=== PATIENT | female | born 1970 | race Caucasian/White ===

== ENCOUNTER → 2021-04-10 | Outpatient (CLI) | payer OTHER ==
[~2021-04-10] MED LIST: ASPIRIN EC81 MG PO; BACTROBAN CREAM15 GM TOP; BENADRYL 50MG C50 MG PO; CATAPRES 0.1MG0.1 MG PO; GLUCOPHAGE1000 MG PO; LASIX20 MG PO; LISINOPRIL40 MG PO; MEDROL DOSEPAK 24 MG PO; NORVASC 5 MG TAB5 MG PO; PROTONIX20 MG PO; PROVENTIL HFA 61 INH INH; SINGULAIR10 MG PO
[2021-04-10 13:42] LABS: HEMOGLOBIN 10.4 gm/dl (12.3-15.3); RED BLOOD COUNT 4.55 M/UL (4.00-5.10); WHITE BLOOD COUNT 11.1 K/UL (4.5-11.0)
== END ==
LOC: LAB 13:17
PROVIDERS: Internal Medicine
DX: D72.829 Elevated white blood cell count, unspecified (principal)
CPT/HCPCS: 36415; 85025

== ENCOUNTER → 2021-04-27 | Day surgery (SDC) | payer OTHER ==
[~2021-04-27] MED LIST changes: +AMITRIPTYLINE H25 MG PO; +ESCITALOPRAM OX10 MG PO; +GABAPENTIN300 MG PO; +HUMALOG100 UNIT/1 SQ; +LEVEMIR100 UNIT/1 SQ; +LEVOTHYROXINE50 MC1 PO; +METOPROLOL SUCC25 MG PO; +VIT B 12 PO; +ZYRTEC10 M3 PO
== END | disposition home or self-care (01) ==
LOC: OR 05:57
DX: Z12.11 Encounter for screening for malignant neoplasm of colon (principal); I10 Essential (primary) hypertension; E11.9 Type 2 diabetes mellitus without complications; E78.5 Hyperlipidemia, unspecified; E78.00 Pure hypercholesterolemia, unspecified; K21.9 Gastro-esophageal reflux disease without esophagitis; G43.909 Migraine, unspecified, not intractable, without status migrainosus; F41.9 Anxiety disorder, unspecified; F32.A Depression, unspecified; G47.30 Sleep apnea, unspecified; J30.9 Allergic rhinitis, unspecified; Z79.899 Other long term (current) drug therapy; Z79.82 Long term (current) use of aspirin; Z79.84 Long term (current) use of oral hypoglycemic drugs; Z88.0 Allergy status to penicillin; Z88.1 Allergy status to other antibiotic agents; Z20.822 Contact with and (suspected) exposure to COVID-19; Z98.51 Tubal ligation status; Z77.22 Contact with and (suspected) exposure to environmental tobacco smoke (acute) (chronic)
CPT/HCPCS: 82962; J2704; J7030

== ENCOUNTER → 2021-05-03 | Outpatient (CLI) | payer OTHER | LOC: KOH-I 04-30 09:00 | DX: R16.0 Hepatomegaly, not elsewhere classified (principal); K92.1 Melena; D72.829 Elevated white blood cell count, unspecified; K76.89 Other specified diseases of liver; N28.89 Other specified disorders of kidney and ureter | CPT/HCPCS: 76700 ==

== ENCOUNTER → 2021-07-02 | Outpatient (CLI) | payer OTHER ==
[~2021-07-02] MED LIST changes: +ASCORBIC ACID500 MG PO; +COLACE100 MG PO; +FERROUS SULFAT325 MG PO; +HUMALOG100 UNIT/3 SQ; +LEVOTHYROXINE75 MC1 PO; +LOPRESSOR 25 MG25 MG PO; +METFORMIN HCL500 MG PO; +OMEGA 3 1,0001 EACH PO; +PERCOCET 5-3251 EACH PO; +PROTONIX40 MG PO
[2021-07-02 10:16] LABS: HEMOGLOBIN 11.2 gm/dl (12.3-15.3); RED BLOOD COUNT 4.34 M/UL (4.00-5.10); WHITE BLOOD COUNT 7.3 K/UL (4.5-11.0)
[2021-07-02 10:37] LABS: BUN/CREATININE RATIO 22 (0-10)
== END ==
LOC: OPSV2 08:55
PROVIDERS: Anesthesiology
DX: Z01.818 Encounter for other preprocedural examination (principal); R94.31 Abnormal electrocardiogram [ECG] [EKG]
CPT/HCPCS: 80048; 85025; 93005

== ENCOUNTER → 2021-07-05 | Day surgery (SDC) | payer OTHER | END | disposition home or self-care (01) | LOC: OR 07:23 | DX: C21.0 Malignant neoplasm of anus, unspecified (principal); K64.8 Other hemorrhoids; K64.4 Residual hemorrhoidal skin tags; I10 Essential (primary) hypertension; E78.5 Hyperlipidemia, unspecified; K21.9 Gastro-esophageal reflux disease without esophagitis; E11.9 Type 2 diabetes mellitus without complications; F32.A Depression, unspecified; F41.9 Anxiety disorder, unspecified; Z88.0 Allergy status to penicillin; Z88.1 Allergy status to other antibiotic agents; Z79.82 Long term (current) use of aspirin; Z79.4 Long term (current) use of insulin; Z79.899 Other long term (current) drug therapy; Z20.822 Contact with and (suspected) exposure to COVID-19 | CPT/HCPCS: 82962; J1100; J1885; J2001; J2250; J2405; J2704; J3010; J7120 ==

== ENCOUNTER → 2021-07-27 | Outpatient (CLI) | payer OTHER | LOC: MRI 09:59 | DX: C44.520 Squamous cell carcinoma of anal skin (principal); D72.829 Elevated white blood cell count, unspecified; R16.0 Hepatomegaly, not elsewhere classified; K92.1 Melena | CPT/HCPCS: 72197; A9577 ==

== ENCOUNTER 2021-08-08 07:25 | Inpatient (IN) | payer OTHER ==
[~2021-08-08] VITALS: Ht 162.6 cm; Wt 64.0 kg
[~2021-08-08 07:25] MED LIST changes: -ZYRTEC10 M3 PO; +ZYRTEC10 MG PO
[2021-08-08 07:59] LABS: HEMOGLOBIN 12.6 gm/dl (12.3-15.3); RED BLOOD COUNT 4.71 M/UL (4.00-5.10); WHITE BLOOD COUNT 9.1 K/UL (4.5-11.0)
[2021-08-08 08:39] LABS: BUN/CREATININE RATIO 20 (0-10)
[2021-08-08] MEDS ORDERED: STOOL SOFTENER100 M1 PO (12:14)
[2021-08-08] MEDS ORDERED: JARDIANCE25 MG PO (12:17)
[2021-08-08] MEDS ORDERED: VITAMIN D 40400 UNIT PO (12:17)
[2021-08-08] MEDS ORDERED: HYDROCODON-ACE1 EAC2 PO (12:17)
[2021-08-08] MEDS ORDERED: ZINC50 M1 PO (12:18)
[2021-08-09 04:00] LABS: HEMOGLOBIN 12.6 gm/dl (12.3-15.3); RED BLOOD COUNT 4.71 M/UL (4.00-5.10); WHITE BLOOD COUNT 10.4 K/UL (4.5-11.0)
[2021-08-09 04:21] LABS: BUN/CREATININE RATIO 29 (0-10)
[2021-08-10 02:50] LABS: HEMOGLOBIN 12.8 gm/dl (12.3-15.3); RED BLOOD COUNT 4.77 M/UL (4.00-5.10); WHITE BLOOD COUNT 11.3 K/UL (4.5-11.0)
[2021-08-10 03:02] LABS: BUN/CREATININE RATIO 33 (0-10)
--- NOTE | 2021-08-10 18:54 | NUR ---
DAUGHTER APPROACHED ME ABOUT GETTING A SHOWER CHAIR TO GET HER MOM OUT OF THE BED TO TAKE A SHOWER, I EXPLAINED THAT HER MOTHER WAS NOT ABLE TO CONTROL HER RIGHT SIDE AND IT WAS NOT A SAFE TRANSFER. I ALSO EXOPLAINED THAT SHE HAD A HEART MONITOR ON AND THAT A DOCTOR WOULD HAVE TO APPROVE THE MONITOR BEING REMOVED. THE FAMILY BECAME UPSET WHEN I HAD TO REMIND THEM THE VISITING POLICY WAS TO HAVE ONE VISITOR AT A TIME WITH COVID RESTRICTIONS BEING IN PLACE THERE WAS 7 PERSONS IN THE ROOM AT THIS TIME. SOLE STAPLER WELT WAS NOTIFIED. FAMILY REMAIN IN THE ROOM WITH PT SITTING AT THE SIDE OF THE BED WITH INTENTIONS OF PLACING THEIR MOTHER IN THE SHOWER. THE PATIENT AND ARE BOTH AWARE OF THE RISK FOR FALLING.
[2021-08-11 03:09] LABS: HEMOGLOBIN 12.8 gm/dl (12.3-15.3); RED BLOOD COUNT 4.78 M/UL (4.00-5.10); WHITE BLOOD COUNT 10.7 K/UL (4.5-11.0)
[2021-08-11 03:34] LABS: BUN/CREATININE RATIO 42 (0-10)
[2021-08-14] MEDS ORDERED: ATORVASTATIN CA40 MG PO (12:13)
[2021-08-14] MEDS ORDERED: CLOPIDOGREL75 MG PO (12:13)
[2021-08-14] MEDS ORDERED: LEVEMIR100 UNIT/1 SQ (12:18)
== END 2021-08-14 17:34 | disposition home health service (06) | DRG 65 ==
LOC: ER1 07:25 → M/S 10:03 → CDU 10:03 → M/S 12:40
PROVIDERS: Emergency Medicine; Physician Assistant Medical; ADMIT Internal Medicine
PROC: B24BZZZ Ultrasonography of Heart with Aorta (ICD-10-PCS; principal; 2021-08-09)
DX: I63.09 Cerebral infarction due to thrombosis of other precerebral artery (principal); G81.91 Hemiplegia, unspecified affecting right dominant side; C21.0 Malignant neoplasm of anus, unspecified; Z20.822 Contact with and (suspected) exposure to COVID-19; E11.9 Type 2 diabetes mellitus without complications; K21.9 Gastro-esophageal reflux disease without esophagitis; R47.81 Slurred speech; R29.810 Facial weakness; E78.5 Hyperlipidemia, unspecified; I08.1 Rheumatic disorders of both mitral and tricuspid valves; R53.81 Other malaise; R29.702 NIHSS score 2; E03.9 Hypothyroidism, unspecified; D50.9 Iron deficiency anemia, unspecified; Z90.49 Acquired absence of other specified parts of digestive tract; Z98.51 Tubal ligation status; Z98.891 History of uterine scar from previous surgery; Z88.1 Allergy status to other antibiotic agents; Z88.5 Allergy status to narcotic agent; Z88.0 Allergy status to penicillin; Z88.2 Allergy status to sulfonamides; Z82.49 Family history of ischemic heart disease and other diseases of the circulatory system; Z83.3 Family history of diabetes mellitus; Z80.9 Family history of malignant neoplasm, unspecified; Z79.4 Long term (current) use of insulin; Z86.73 Personal history of transient ischemic attack (TIA), and cerebral infarction without residual deficits; Z88.8 Allergy status to other drugs, medicaments and biological substances; Z79.82 Long term (current) use of aspirin
CPT/HCPCS: ECHO; 36415; 70450; 70496; 70498; 70551; 71045; 80048; 80053; 80061; 81001; 82550; 82553; 82962; 83036; 83735; 84484; 85025; 85027; 85610; 85730; 92507; 92610; 93306; 97110-GP-CQ; 97112; 97162; 97166; 97530-GP-CQ; 97535; 99285; G0378; Q9967; U0002

== ENCOUNTER → 2021-12-27 | Outpatient (CLI) | payer OTHER ==
[~2021-12-27] MED LIST changes: +ATORVASTATIN CA40 MG PO; +CLOPIDOGREL75 MG PO; +HYDROCODON-ACE1 EAC2 PO; +JARDIANCE25 MG PO; +STOOL SOFTENER100 M1 PO; +VITAMIN D 40400 UNIT PO; +ZINC50 M1 PO
== END ==
LOC: CT 12-05 13:00
DX: C21.1 Malignant neoplasm of anal canal (principal); D72.829 Elevated white blood cell count, unspecified; R16.0 Hepatomegaly, not elsewhere classified; R91.8 Other nonspecific abnormal finding of lung field; K76.0 Fatty (change of) liver, not elsewhere classified
CPT/HCPCS: 71260; Q9967

== ENCOUNTER → 2022-01-18 | Day surgery (SDC) | payer OTHER ==
[~2022-01-18] MED LIST changes: +CIPRO500 MG PO; +LIORESAL TAB 1010 MG PO; +MELATONIN3 M3 PO; +METRONIDAZOLE500 MG PO; +PROAIR HFA8.5 GM INH; +ZOFRAN 4 MG TAB4 MG PO
== END | disposition home or self-care (01) ==
LOC: OR 07:20
DX: Z12.11 Encounter for screening for malignant neoplasm of colon (principal); K21.9 Gastro-esophageal reflux disease without esophagitis; E78.00 Pure hypercholesterolemia, unspecified; I10 Essential (primary) hypertension; E11.9 Type 2 diabetes mellitus without complications; Z85.048 Personal history of other malignant neoplasm of rectum, rectosigmoid junction, and anus; Z92.21 Personal history of antineoplastic chemotherapy; Z88.1 Allergy status to other antibiotic agents; Z88.5 Allergy status to narcotic agent; Z88.0 Allergy status to penicillin; Z79.82 Long term (current) use of aspirin
CPT/HCPCS: 82962

== ENCOUNTER 2022-01-30 22:07 | Emergency (ER) | payer OTHER ==
[~2022-01-30 22:07] MED LIST changes: -CIPRO500 MG PO; -METRONIDAZOLE500 MG PO; -ZOFRAN 4 MG TAB4 MG PO
[2022-01-30 22:37] LABS: HEMOGLOBIN 11.7 gm/dl (12.3-15.3); RED BLOOD COUNT 3.96 M/UL (4.00-5.10); WHITE BLOOD COUNT 5.4 K/UL (4.5-11.0)
[2022-01-30 22:55] LABS: BUN/CREATININE RATIO 29 (0-10)
[2022-01-31] MEDS ORDERED: METRONIDAZOLE500 MG PO (02:10)
[2022-01-31] MEDS ORDERED: CIPRO500 MG PO (02:10)
[2022-01-31] MEDS ORDERED: ZOFRAN 4 MG TAB4 MG PO (02:10)
== END 2022-01-31 02:30 | disposition home or self-care (01) ==
LOC: ER1 22:07
PROVIDERS: Emergency Medicine
DX: K52.9 Noninfective gastroenteritis and colitis, unspecified (principal); Z85.048 Personal history of other malignant neoplasm of rectum, rectosigmoid junction, and anus; E11.9 Type 2 diabetes mellitus without complications; I10 Essential (primary) hypertension; Z86.73 Personal history of transient ischemic attack (TIA), and cerebral infarction without residual deficits
CPT/HCPCS: 80053; 82272; 83690; 84484; 85025; 85610; 85730; 93005; 99284; Q9967